=== PATIENT | male | born 1965 | race Caucasian/White ===

== ENCOUNTER 2018-09-28 08:18 | Day surgery (SDC) | payer BC ==
[2018-09-27 13:37] VITALS: BMI 31.1
[2018-09-28] MEDS ORDERED: Ketorolac Tromethamine 30 MG/ML VIAL ONE (09:25)
[2018-09-28] MEDS ORDERED: Bupivacaine/Epinephrine 0.25% 30 ML VIAL ONE ×2 (10:33→11:29)
[2018-09-28] MEDS ORDERED: Fentanyl 100 MCG/2 ML VIAL ONE ×2 (10:35→11:28)
[2018-09-28 11:04] LABS: #Basophils 0.1 thou/uL (0.0-0.2); #Eosinphils 0.3 thou/uL (0.0-0.7); #Lymphocytes 1.8 thou/uL (1.20-3.40); #Monocytes 0.6 thou/uL (0.11-0.59); %Basophils 1.2 % (0.0-1.0); %Eosinophils 3.5 % (0.0-10.0); %Lymphocytes 20.4 % (21.0-51.0); %Monocytes 6.7 % (0.0-10.0); %Neutrophils 68.1 % (42.0-75.0); Hemoglobin 17.4 g/dL (14.0-18.0); Mean Corpuscular HGB CONC 33.7 g/dL (32.0-36.0); Mean Corpuscular Hemoglobin 31.4 pg (27.0-31.0); Mean Corpuscular Volume 93.3 fL (78.0-98.0); Mean Platelet Volume 7.1 fL (7.4-10.4); Platelet Count 242 thou/uL (130-400); RBC Distribution Width 12.6 % (11.5-14.5); Red Blood Cell (RBC) Count 5.54 mill/uL (4.70-6.10); White Blood Cell (WBC) Count 8.9 thou/uL (4.8-10.8)
[2018-09-28] MEDS ORDERED: Midazolam HCl 2 mg/2 ml Vial ONE (11:27)
[2018-09-28 11:35] LABS: Anion Gap 18 mmol/L (10-20); BUN (Urea Nitrogen) 13 mg/dL (8.4-25.7); Calc. Creatinine Clearance 123 mL/min (70-130); Calcium 9.9 mg/dL (7.8-10.44); Carbon Dioxide 22 mmol/L (22-29); Chloride 103 mmol/L (98-107); Estimated GFR-MDRD 80; Glucose 98 mg/dL (70-105); Potassium 3.9 mmol/L (3.5-5.1); Sodium 139 mmol/L (136-145)
[2018-09-28] MEDS ORDERED: traMADol HCl 50 MG TAB ONE (13:07)
[2018-09-28] MEDS ORDERED: ePHEDrine 50 MG/ML VIAL ONE (16:18)
[2018-09-28] MEDS ORDERED: Lidocaine 1% PF 5 ML VIAL ONE (16:18)
[2018-09-28] MEDS ORDERED: Ondansetron PF 4 MG/2 ML Vial ONE (16:18)
[2018-09-28] MEDS ORDERED: PROPOFOL 200 MG/20 ML VIAL ONE (16:18)
[2018-09-28] MEDS ORDERED: Dexamethasone 20 MG/5 ML VIAL ONE (16:18)
--- NOTE | 2018-09-29 10:06 | OP ---
DATE OF PROCEDURE: 09/28/2018 PREOPERATIVE DIAGNOSIS: Umbilical hernia. POSTOPERATIVE DIAGNOSIS: Umbilical hernia. PROCEDURE PERFORMED: Umbilical hernia repair with 4.3 cm Ventralex mesh patch. ANESTHESIA: General anesthesia using laryngeal mask airway. INDICATIONS: The patient is a 53-year-old white male. He has an obvious umbilical hernia and he presents this time for repair. DESCRIPTION OF PROCEDURE: Informed consent was obtained. The patient was taken to the operating room, where general anesthesia obtained with the patient in supine position. Abdomen was prepped with ChloraPrep and draped in sterile fashion. Local anesthetic was infiltrated using 0.25% Marcaine with epinephrine. Curvilinear infraumbilical incision was created and dissection was carried through skin and subcutaneous tissue down to the fascia. The umbilicus was dissected off the underlying fascia and hernia sac and reflected superiorly. The hernia defect was dissected circumferentially and easily able to be inverted in the preperitoneal space. Preperitoneal digital dissection was carried out to free the posterior aspect of the fascia. A 4.3-cm Ventralex patch was obtained and placed in the preperitoneal space. It was pulled, secured against the posterior aspect of the fascia. The tails were secured to the anterior fascia superiorly and inferiorly using single interrupted sutures of 0 Prolene. The lateral aspects of the wound were also closed with interrupted sutures of 0 Prolene. The umbilicus was secured down to the fascia with 2 interrupted sutures of 3-0 Vicryl and the remainder of the wound was closed in layers with 3-0 and 4-0 Monocryl. A compression dressing was applied with cotton balls and Tegaderm in the usual fashion. There were no complications. The patient tolerated the procedure well and was taken to recovery room in stable condition. Job ID: [id number]
== END 2018-09-28 13:45 | disposition home or self-care (01) ==
LOC: SDC 08:18
PROVIDERS: ATTEND Specialist
PROC: 0WUF0JZ Supplement Abdominal Wall with Synthetic Substitute, Open Approach (ICD-10-PCS; principal; 2018-09-28)
DX: K42.9 Umbilical hernia without obstruction or gangrene (principal); I10 Essential (primary) hypertension; E78.00 Pure hypercholesterolemia, unspecified; M10.9 Gout, unspecified; Z87.891 Personal history of nicotine dependence; Z91.018 Allergy to other foods; Z79.899 Other long term (current) drug therapy
CPT/HCPCS: 80048; 85025; 93005; 93010; J0131; J0690; J1100; J1885; J2001; J2250; J2405; J2704; J3010; J3490